=== PATIENT | male | born 1980 | race Caucasian/White ===

== ENCOUNTER 2016-09-27 08:14 | Emergency (ER) | payer OTHER ==
[~2016-09-27] VITALS: Ht 170.2 cm; Wt 77.1 kg
[~2016-09-27 08:14] MED LIST: BENTYL10 MG PO; MUCINEX1200 MG PO; ROBITUSSIN W/CO10 ML PO; TYLENOL XSTR500 MG PO; ZOFRAN ODT4 MG PO; ZOFRAN ODT4 MG SL
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
--- NOTE | 2016-09-27 09:25 | RADIOLOGY REPORT ---
EXAMINATION: XR CHEST CLINICAL INFORMATION: URI, cough and SOB. COMPARISON: None TECHNIQUE: 2 views of the chest were obtained. FINDINGS: No significant abnormality is noted involving the heart, lungs, mediastinum, bony thorax or soft tissues. IMPRESSION: Unremarkable chest examination.
[2016-09-27 10:23] VITALS: BP 103/59
[2016-09-27] MEDS ORDERED: ZOFRAN ODT4 M1 SL (10:38)
== END 2016-09-27 10:51 ==
LOC: ERH 08:14
DX: J06.9 Acute upper respiratory infection, unspecified (principal)
CPT/HCPCS: J3101